=== PATIENT | female | born 1970 | race African-American/Black ===

== ENCOUNTER 2017-12-21 12:17 | Emergency (ER) | payer MEDICAID, OTHER ==
[2017-12-21] MEDS ORDERED: Ketorolac Tromethamine 30 MG/ML VIAL ONE (14:27)
[2017-12-21 14:43] LABS: #Basophils 0.1 thou/uL (0.0-0.2); #Eosinphils 0.2 thou/uL (0.0-0.7); #Lymphocytes 1.9 thou/uL (1.20-3.40); #Monocytes 0.7 thou/uL (0.11-0.59); #Neutrophils 4.8 thou/uL (1.40-6.50); %Basophils 0.7 % (0.0-1.0); %Lymphocytes 24.9 % (21.0-51.0); %Neutrophils 62.5 % (42.0-75.0); Hemoglobin 13.1 g/dL (12.0-16.0); Mean Corpuscular HGB CONC 32.1 g/dL (32.0-36.0); Mean Corpuscular Hemoglobin 29.1 pg (27.0-31.0); Mean Corpuscular Volume 90.9 fl (81.0-99.0); Mean Platelet Volume 6.8 fL (7.4-10.4); Platelet Count 368 thou/uL (130-400); RBC Distribution Width 13.7 % (11.5-14.5); Red Blood Cell (RBC) Count 4.49 mill/uL (4.20-5.40); White Blood Cell (WBC) Count 7.7 thou/uL (4.8-10.8)
[2017-12-21] MEDS ORDERED: Methocarbamol 1 GM/10 ML VIAL SLOW IVP SCH (14:45)
[2017-12-21 15:07] LABS: ALT (SGPT) 7 U/L (8-55); AST (SGOT) 11 U/L (5-34); Albumin 3.9 g/dL (3.5-5.0); Alkaline Phosphatase 105 U/L (40-150); Anion Gap 9 mmol/L (10-20); BUN (Urea Nitrogen) 11 mg/dL (7.0-18.7); Bilirubin, Total 0.4 mg/dL (0.2-1.2); Calc. Creatinine Clearance 0 mL/min (70-130); Calcium 9.4 mg/dL (7.8-10.44); Carbon Dioxide 27 mmol/L (22-29); Chloride 104 mmol/L (98-107); Estimated GFR-MDRD 69; Globulin 3.9 g/dL (2.4-3.5); Glucose 86 mg/dL (70-105); Lipase 39 U/L (8-78); Magnesium 2.1 mg/dL (1.6-2.6); Potassium 4.1 mmol/L (3.5-5.1); Protein, Total 7.8 g/dL (6.0-8.3); Sodium 136 mmol/L (136-145)
[2017-12-21 15:09] LABS: CKMB 0.4 ng/mL (0-6.6); Troponin I Less than 0.010 ng/mL (< 0.028)
[2017-12-21 15:58] LABS: Bilirubin Negative (Negative); Blood, Urine Negative (Negative); Clarity CLEAR (Clear); Glucose, Urine (Dipstick) Negative (Negative); Leukocyte Trace (Negative); Nitrite Negative (Negative); Protein, Urine (Dipstick) Negative (Neg-Trace); Specific Gravity, Urine 1.013 (1.002-1.036); pH, Urine 6.5 (5.0-9.0)
[2017-12-21 16:01] LABS: Bacteria/HPF None Seen HPF (None Seen); Hyaline Casts/LPF 0-3 HYALINE CAST LPF (0-3 Hyaline); RBC/HPF 0-3 HPF (0-3); WBC/HPF 0-3 HPF (0-3)
--- NOTE | 2017-12-21 16:21 | RAD ---
FRONTAL CHEST RADIOGRAPH: Date: 12-21-17 Comparison: 11-24-16 History: Upper back pain. Pain radiating into the arms. FINDINGS: Mild increased linear interstitial density is noted, stable. Heart and mediastinal contours are uncha nged. There is no pneumothorax or pleural fluid and no focal consolidation or alveolar edema. IMPRESSION: No acute findings. POS: H
== END 2017-12-21 16:35 | disposition home or self-care (01) ==
LOC: ERS 12:17
DX: N39.0 Urinary tract infection, site not specified (principal); I25.2 Old myocardial infarction; I10 Essential (primary) hypertension; E66.9 Obesity, unspecified; F17.210 Nicotine dependence, cigarettes, uncomplicated; F32.9 Major depressive disorder, single episode, unspecified
CPT/HCPCS: 36415; 71045; 80053; 81003; 81015; 82553; 83690; 83735; 83880; 84484; 85025; 85652; 86140; 87040; 87086; 93005; 96361; 96374; 96375; J1885; J2800

== ENCOUNTER 2018-01-16 15:24 | Emergency (ER) | payer OTHER ==
[2018-01-16] MEDS ORDERED: Ketorolac Tromethamine 30 MG/ML VIAL ONE (16:14)
== END 2018-01-16 16:40 | disposition home or self-care (01) ==
LOC: ERS 15:24
DX: S46.911A Strain of unspecified muscle, fascia and tendon at shoulder and upper arm level, right arm, initial encounter (principal); S56.911A Strain of unspecified muscles, fascia and tendons at forearm level, right arm, initial encounter; E11.9 Type 2 diabetes mellitus without complications; I10 Essential (primary) hypertension; I25.2 Old myocardial infarction; E66.9 Obesity, unspecified; F32.9 Major depressive disorder, single episode, unspecified; F17.210 Nicotine dependence, cigarettes, uncomplicated; Z79.84 Long term (current) use of oral hypoglycemic drugs; Z79.899 Other long term (current) drug therapy; X58.XXXA Exposure to other specified factors, initial encounter
CPT/HCPCS: 96372; J1885

== ENCOUNTER 2018-03-08 20:48 | Emergency (ER) | payer OTHER ==
[2018-03-08] MEDS ORDERED: Diazepam 5 MG TAB ONE (21:45)
[2018-03-08] MEDS ORDERED: Ketorolac Tromethamine 30 MG/ML VIAL ONE (21:45)
[2018-03-08 21:50] LABS: Bilirubin Negative (Negative); Blood, Urine Negative (Negative); Clarity CLOUDY (Clear); Glucose, Urine (Dipstick) Negative (Negative); Leukocyte Negative (Negative); Nitrite Negative (Negative); Protein, Urine (Dipstick) Negative (Neg-Trace); Specific Gravity, Urine 1.008 (1.002-1.036); pH, Urine 6.5 (5.0-9.0)
[2018-03-08 21:51] LABS: Pregnancy Test - Urine (BHCG) Negative (Negative); Pregu Control Background? CLEAR/WHITE (CLR/WHITE); Pregu Control Bar Appear? YES (CONTROL BAR); Specific Gravity 1.008 (1.002-1.036)
== END 2018-03-08 23:08 | disposition home or self-care (01) ==
LOC: ERS 20:48
DX: G89.29 Other chronic pain (principal); M54.5 Low back pain; E11.9 Type 2 diabetes mellitus without complications; I10 Essential (primary) hypertension; I25.2 Old myocardial infarction; F17.210 Nicotine dependence, cigarettes, uncomplicated; Z79.84 Long term (current) use of oral hypoglycemic drugs; Z79.899 Other long term (current) drug therapy
CPT/HCPCS: 81003; 81025; 96372; 99406; J1885

== ENCOUNTER 2018-04-04 14:21 | Outpatient (CLI) | payer OTHER ==
--- NOTE | 2018-04-04 15:40 | ULT ---
LEFT UPPER EXTREMITY VENOUS ULTRASOUND: COMPARISON: None. HISTORY: Left arm mass and edema. TECHNIQUE: Multiplanar, issa scale, and color Doppler images were obtained in a left upper extremity venous ultr asound. Spectral analysis of the Doppler waveforms was performed. FINDINGS: The left internal jugular vein demonstrates normal compression and flow without evidence of thrombus. The left subclavian vein demonstrates normal flow and augmentation without evidence of thrombus. T he left axial and brachial veins demonstrate normal compression, flow, and augmentation without evide nce of thrombus. The basilic and cephalic veins are patent without evidence of thrombus. The venous structures distal to the elbow are patent without evidence of thrombus. In the antecubital fossa, at the area of abnormality, there is soft tissue prominence that has the sa me echogenicity as fat. This is not definitely encapsulated but could represent a lipoma. IMPRESSION: 1. No evidence of left upper extremity deep vein thrombosis. 2. Possible lipoma in the antecubital fossa. POS: [facility]
== END 2018-04-04 14:22 | disposition home or self-care (01) ==
LOC: ULT 14:21
PROVIDERS: ATTEND Family Medicine
DX: M79.89 Other specified soft tissue disorders (principal)

== ENCOUNTER 2018-07-07 15:24 | Emergency (ER) | payer OTHER ==
[2018-07-07 16:17] LABS: #Eosinphils 0.4 thou/uL (0.0-0.7); #Lymphocytes 2.4 thou/uL (1.20-3.40); #Monocytes 0.6 thou/uL (0.11-0.59); %Basophils 0.1 % (0.0-1.0); %Eosinophils 3.6 % (0.0-10.0); %Lymphocytes 21.4 % (21.0-51.0); %Monocytes 4.9 % (0.0-10.0); Hemoglobin 12.7 g/dL (12.0-16.0); Mean Corpuscular HGB CONC 33.9 g/dL (32.0-36.0); Mean Corpuscular Hemoglobin 30.5 pg (27.0-31.0); Mean Corpuscular Volume 89.7 fL (78.0-98.0); Mean Platelet Volume 6.8 fL (7.4-10.4); Platelet Count 371 thou/uL (130-400); RBC Distribution Width 13.6 % (11.5-14.5); Red Blood Cell (RBC) Count 4.18 mill/uL (4.20-5.40); White Blood Cell (WBC) Count 11.4 thou/uL (4.8-10.8)
--- NOTE | 2018-07-07 16:31 | RAD ---
PORTABLE CHEST: 07/07/18 HISTORY: Dyspnea. COMPARISON: 12/21/17 study. Heart size is enlarged. No signs of overt pulmonary edema or focal infiltrates. IMPRESSION: Cardiomegaly. Stable chest. POS: [facility]
[2018-07-07 16:38] LABS: ALT (SGPT) Less than 7 U/L (8-55); AST (SGOT) 12 U/L (5-34); Albumin 3.7 g/dL (3.5-5.0); Alkaline Phosphatase 104 U/L (40-150); Anion Gap 13 mmol/L (10-20); BUN (Urea Nitrogen) 15 mg/dL (7.0-18.7); Bilirubin, Total 0.2 mg/dL (0.2-1.2); Calc. Creatinine Clearance 0 mL/min (70-130); Calcium 9.1 mg/dL (7.8-10.44); Carbon Dioxide 25 mmol/L (22-29); Chloride 106 mmol/L (98-107); Estimated GFR-MDRD 75; Globulin 3.8 g/dL (2.4-3.5); Glucose 108 mg/dL (70-105); Potassium 4.2 mmol/L (3.5-5.1); Protein, Total 7.5 g/dL (6.0-8.3); Sodium 140 mmol/L (136-145)
[2018-07-07 17:39] LABS: CKMB 0.9 ng/mL (0-6.6); Troponin I Less than 0.010 ng/mL (< 0.028)
[2018-07-07] MEDS ORDERED: Furosemide 40 MG/4 ML VIAL ONE (18:03)
--- NOTE | 2018-07-08 08:01 | ULT ---
VENOUS DOPPLER ULTRASOUND OF THE BILATERAL LOWER EXTREMITIES: Date: 07/07/18 HISTORY: 47-year-old female with bilateral lower extremity edema and leg pain. TECHNIQUE: Sanchez scale ultrasound with color flow and spectral Doppler imaging of the deep venous systems of the lower extremities was performed bilaterally. FINDINGS: There is good flow, compression, and augmentation noted in the common femoral, femoral, deep femoral, popliteal, posterior tibial, and greater saphenous veins on either side. IMPRESSION: No evidence of deep venous thrombosis in either lower extremity. POS: NU
== END 2018-07-07 19:52 | disposition home or self-care (01) ==
LOC: ERS 15:24
DX: I11.0 Hypertensive heart disease with heart failure (principal); I50.9 Heart failure, unspecified; M79.662 Pain in left lower leg; M79.661 Pain in right lower leg; E11.9 Type 2 diabetes mellitus without complications; I25.2 Old myocardial infarction; E66.9 Obesity, unspecified; F32.9 Major depressive disorder, single episode, unspecified; F17.210 Nicotine dependence, cigarettes, uncomplicated; Z79.899 Other long term (current) drug therapy; Z79.84 Long term (current) use of oral hypoglycemic drugs
CPT/HCPCS: 71045; 80053; 82550; 82553; 83880; 84484; 85025; 93005; 93970; 94760; 96374; J1940; J7620

== ENCOUNTER 2018-11-14 19:30 | Outpatient (CLI) | payer OTHER | END 2018-11-14 19:31 | disposition home or self-care (01) | LOC: SLEEPLAB 19:30 | PROVIDERS: ATTEND Family Medicine | DX: G47.33 Obstructive sleep apnea (adult) (pediatric) (principal); I49.9 Cardiac arrhythmia, unspecified; E66.9 Obesity, unspecified; Z68.43 Body mass index [BMI] 50.0-59.9, adult | CPT/HCPCS: 95810 ==

== ENCOUNTER 2019-02-28 20:30 | Outpatient (CLI) | payer OTHER | END 2019-02-28 20:31 | disposition home or self-care (01) | LOC: SLEEPLAB 20:30 | PROVIDERS: ATTEND Family Medicine | DX: G47.33 Obstructive sleep apnea (adult) (pediatric) (principal); E66.9 Obesity, unspecified | CPT/HCPCS: 95811 ==

== ENCOUNTER 2019-04-20 12:26 | Outpatient (CLI) | payer OTHER | END 2019-04-20 12:27 | disposition home or self-care (01) | LOC: ULT 12:26 | PROVIDERS: ATTEND Family Medicine | DX: Z01.810 Encounter for preprocedural cardiovascular examination (principal); G47.33 Obstructive sleep apnea (adult) (pediatric); J45.909 Unspecified asthma, uncomplicated; I08.1 Rheumatic disorders of both mitral and tricuspid valves | CPT/HCPCS: 93306 ==

== ENCOUNTER 2019-05-30 12:31 | Outpatient (CLI) | payer OTHER ==
--- NOTE | 2019-06-19 16:50 | MMO ---
Bilateral MAMMO Bilat Screen DDI. CLINICAL HISTORY: Patient is 48 years old and is seen for screening. The patient has no family history of breast cancer. The patient has no personal history of cancer. VIEWS: The views performed were: bilateral craniocaudal and bilateral mediolateral oblique. FILMS COMPARED: The present examination has been compared to prior imaging studies performed at [facility] on 09/16/2012, and at [facility] on 06/14/2015. This study has been interpreted with the assistance of computer-aided detection. MAMMOGRAM FINDINGS: The breasts are heterogeneously dense, which could obscure a lesion on mammography. There is a new mass seen in the sub-areolar region of the right breast. In the left breast, there are no suspicious masses, calcifications or areas of architectural distortion. IMPRESSION: NEW MASS IN THE RIGHT BREAST REQUIRES ADDITIONAL EVALUATION. AN ULTRASOUND EXAM IS RECOMMENDED. ADDITIONAL IMAGING. ACR BI-RADS Category 0 - Incomplete: Need additional imaging evaluation. [facility] will notify the patient of the need for additional imaging services. MAMMOGRAPHY NOTE: 1. A negative mammogram report should not delay a biopsy if a dominant of clinically suspicious mass is present. 2. Approximately 10% to 15% of breast cancers are not detected by mammography. 3. Adenosis and dense breasts may obscure an underlying neoplasm. Reported by: REHAN KAPADIA MD Electonically Signed: [id number]
== END 2019-05-30 12:32 | disposition home or self-care (01) ==
LOC: BICMAMMO 12:31
PROVIDERS: ATTEND Specialist
DX: Z12.31 Encounter for screening mammogram for malignant neoplasm of breast (principal); N63.41 Unspecified lump in right breast, subareolar
CPT/HCPCS: 77067

== ENCOUNTER 2019-06-22 12:09 | Outpatient (CLI) | payer OTHER ==
--- NOTE | 2019-06-22 13:30 | MMO ---
Right Breast MAMMO Unilat Diag DDI RT+KELSI. CLINICAL HISTORY: Patient is 48 years old and is seen for additional evaluation requested from prior study. The patient has no family history of breast cancer. The patient has no personal history of cancer. VIEWS: The views performed were: right craniocaudal spot compression with tomosynthesis; right mediolateral oblique spot compression with tomosynthesis; and right mediolateral with tomosynthesis. FILMS COMPARED: The present examination has been compared to prior imaging studies performed at [facility] on 09/16/2012, 05/30/2019 and 06/22/2019, and at [facility] on 06/14/2015. MAMMOGRAM FINDINGS: The breast is heterogeneously dense, which could obscure a lesion on mammography. Additional evaluation was performed for the mass in the right breast, sub-areolar seen on 05/30/2019. On the present examination, there is a mass in the sub-areolar region of the right breast. Mass like opacity corresponds to mild ductal ectasia on ultrasound. There are no suspicious masses, suspicious calcifications, or new areas of architectural distortion. IMPRESSION: THERE IS NO MAMMOGRAPHIC EVIDENCE OF MALIGNANCY. THE FINDINGS AND RECOMMENDATIONS WERE DISCUSSED WITH THE PATIENT PRIOR TO HER LEAVING THE CENTER. A ROUTINE FOLLOW-UP MAMMOGRAM IN 1 YEAR IS RECOMMENDED. THE RESULTS OF THIS EXAM WERE SENT TO THE PATIENT. ACR BI-RADS Category 2 - Benign finding MAMMOGRAPHY NOTE: 1. A negative mammogram report should not delay a biopsy if a dominant of clinically suspicious mass is present. 2. Approximately 10% to 15% of breast cancers are not detected by mammography. 3. Adenosis and dense breasts may obscure an underlying neoplasm. Reported by: REHAN KAPADIA MD Electonically Signed: [id number]
--- NOTE | 2019-06-23 03:41 | ULT ---
RIGHT BREAST ULTRASOUND: INDICATION: Density within the right breast retroareolar region. FINDINGS: The retroareolar right breast mass-like density corresponds to mildly ectatic ducts. No intraluminal mass is seen within the dilated ducts. IMPRESSION: BIRADS category 2 - benign. Recommend routine annual mammographic screening. Please see the miko adams dictated right breast diagnostic mammogram for further details. POS: OFF
== END 2019-06-22 12:10 | disposition home or self-care (01) ==
LOC: BICMAMMO 12:09
PROVIDERS: ATTEND Specialist
DX: N63.10 Unspecified lump in the right breast, unspecified quadrant (principal)
CPT/HCPCS: G0279

== ENCOUNTER 2019-08-15 15:36 | Outpatient (CLI) | payer OTHER ==
--- NOTE | 2019-08-15 16:07 | RAD ---
TWO VIEW CHEST: 08/15/19 INDICATIONS: Dyspnea. FINDINGS: The cardiac silhouette is enlarged and there is prominence of the pulmonary vasculature as well as th e bilateral pulmonary interstitium. No significant effusion or discrete pneumothorax. IMPRESSION: Findings of fluid overload. Correlate clinically. Imaging follow-up may also be obtained for continue d assessment. POS: [facility]
== END 2019-08-15 15:37 | disposition home or self-care (01) ==
LOC: RAD 15:36
PROVIDERS: ATTEND Internal Medicine
DX: R06.00 Dyspnea, unspecified (principal); E87.70 Fluid overload, unspecified
CPT/HCPCS: 71046

== ENCOUNTER 2019-10-03 17:23 | Emergency (ER) | payer OTHER ==
[2019-10-03] MEDS ORDERED: Ketorolac Tromethamine 30 MG/ML VIAL ONE (19:00)
--- NOTE | 2019-10-03 19:26 | RAD ---
EXAM: 3 views of the left shoulder HISTORY: Shoulder pain COMPARISON: None FINDINGS: There is no evidence of acute fracture or dislocation. No degenerative changes are present. No soft tissue swelling is seen. The visualized thorax is unremarkable. IMPRESSION: No evidence of acute osseous abnormality.
--- NOTE | 2019-10-03 19:27 | RAD ---
EXAM: 3 views of the lumbosacral spine HISTORY: Low back pain COMPARISON: None FINDINGS: 3 views of the lumbosacral spine shows normal height and alignment of the vertebral bodies and intervertebral discs without fracture or subluxation. Mild degenerative changes are seen at the thoracolumbar junction with small osteophytes present in this location. The sacroiliac joints are unremarkable. IMPRESSION: Mild degenerative changes of the spine without acute osseous abnormality.
== END 2019-10-03 19:50 | disposition home or self-care (01) ==
LOC: ERS 17:23
DX: M54.5 Low back pain (principal); M25.512 Pain in left shoulder; E11.9 Type 2 diabetes mellitus without complications; I10 Essential (primary) hypertension; E66.9 Obesity, unspecified; F17.210 Nicotine dependence, cigarettes, uncomplicated; Z79.84 Long term (current) use of oral hypoglycemic drugs; Z79.899 Other long term (current) drug therapy
CPT/HCPCS: 72100; 96372; J1885

== ENCOUNTER 2019-11-06 22:58 | Inpatient (IN) | payer OTHER ==
[~2019-11-06 22:58] MED LIST: Iopamidol 370 76% 100 ML VIAL ONE
[2019-11-06 23:30] LABS: Hemoglobin 13.8 g/dL (12.0-16.0); Mean Corpuscular Hemoglobin 29.3 pg (27.0-31.0); Mean Corpuscular Volume 88.8 fL (78.0-98.0); Platelet Count 416 thou/uL (130-400); RBC Distribution Width 13.9 % (11.5-14.5); White Blood Cell (WBC) Count 18.8 thou/uL (4.8-10.8)
[2019-11-06] MEDS ORDERED: Ondansetron PF 4 MG/2 ML Vial ONE (23:31)
[2019-11-06] MEDS ORDERED: Morphine 4 MG/ML VIAL ONE (23:31)
[2019-11-06 23:41] LABS: ALT (SGPT) 8 U/L (8-55); AST (SGOT) 11 U/L (5-34); Albumin 4.1 g/dL (3.5-5.0); Alkaline Phosphatase 108 U/L (40-110); Anion Gap 14 mmol/L (10-20); BUN (Urea Nitrogen) 13 mg/dL (7.0-18.7); Bilirubin, Total 0.4 mg/dL (0.2-1.2); Calc. Creatinine Clearance 0 mL/min (70-130); Calcium 9.3 mg/dL (7.8-10.44); Carbon Dioxide 26 mmol/L (22-29); Chloride 104 mmol/L (98-107); Estimated GFR-MDRD 74; Globulin 3.9 g/dL (2.4-3.5); Glucose 116 mg/dL (70-105); Potassium 4.1 mmol/L (3.5-5.1); Sodium 140 mmol/L (136-145)
[2019-11-06 23:45] LABS: Band 2 % (5-11); Eosinophils 4 % (0-10); Lymphocytes 20 % (21-51); MDiff Complete? YES; Monocytes 3 % (0-10); Neutrophil 71 % (42-75)
--- NOTE | 2019-11-06 23:56 | CT ---
CT abdomen and pelvis: 11/06/2019 COMPARISON: None HISTORY: Nausea vomiting and pain TECHNIQUE: Axial CT imaging at 5 mm intervals from the lung bases through the pubic symphysis with IV contrast. Coronal and sagittal reformatted imaging obtained. FINDINGS: Imaged lung bases are unremarkable. No free intraperitoneal air. The liver, gallbladder, sp shaun, pancreas, adrenal glands, and kidneys demonstrate no acute findings. Small volume free fluid noted in the pelvic cul-de-sac and in the left lower quadrant. There are nons pecific areas of hypodensity within the lower uterine segment and uterine body which could represent fibroid disease or fluid within the endometrial canal. This could be better assessed with f ollow-up pelvic ultrasound. There are a few scattered colonic diverticula. No evidence for diverticulitis or appendicitis. There is fluid within the stomach. There is a loop of small bowel which contains fecal material within the mid left abdomen. This small bowel loop is best seen on axial image 60 and coronal image 77. There is mild small bowel dilatation in this region and small volume fluid within the mesentery. Distal small bowel loops are d ecompressed. Findings may signify developing small bowel obstruction or focal ileus. The vascular structures of the abdomen/pelvis appear patent. No abdominal or pelvic lymphadenopathy i s seen. Review of the osseous structures demonstrates no worrisome lytic or blastic bone lesions. IMPRESSION: Small volume free fluid in the left lower quadrant, pelvic cul-de-sac, and mesentery with in the left lower quadrant. In this region there is a mildly dilated small bowel loop containing fecal material within distal small bowel dilatation suggesting developing small bowel obstruction or focal ileus. Short-term follow-up imaging following treatment to document resolution advised. No evidence for free intraperitoneal air or appendicitis. Additional incidental findings as detailed abo ve.
[2019-11-07 00:46] LABS: BHCG - Serum Negative (NEGATIVE); Pregs Control Background? CLEAR/WHITE (CLR/WHITE); Pregs Control Bar Appear? YES (CONTROL BAR)
[2019-11-07] MEDS ORDERED: Benzocaine 20% Spray 60 ML CAN ONE (01:12)
[2019-11-07] MEDS ORDERED: Morphine 2 MG/ML SYRINGE SLOW IVP PRN (02:36)
[2019-11-07] MEDS ORDERED: Acetaminophen 325 MG TAB PO PRN (02:37)
[2019-11-07] MEDS ORDERED: Ondansetron ODT 4 MG TAB SL PRN (02:37)
[2019-11-07] MEDS ORDERED: Ondansetron PF 4 MG/2 ML Vial IVP PRN (02:37)
[2019-11-07] MEDS: Sodium Chloride 0.9% 1,000 ML IV SCH ×2 (03:07→15:52)
[2019-11-07 03:14] VITALS: BMI 51.0
[2019-11-07] MEDS ORDERED: Sodium Chloride 0.9% 10 ML ONE (04:18)
--- NOTE | 2019-11-07 08:14 | RAD ---
RADIOGRAPH CHEST 1 VIEW: Date: 11/07/19 Time: 0134 hours HISTORY: 49-year-old female with chest and epigastric pain. Nausea and vomiting. FINDINGS: There is no air space density, pulmonary edema, or pneumothorax. The lateral costophrenic angles are sharp. The only interval change since 08/15/19 is a current esophagogastric tube, which passes infer ior to the diaphragm, with distal tip outside of the field of view. Lordotic angulation magnifies the cardiac shadow. IMPRESSION: 1. No acute pulmonary findings. 2. Esophagogastric tube. jn [] POS: [facility]
[2019-11-07] MEDS ORDERED: FLU VACC QS2019-20(6MOS UP)/PF 60 MCG/0.5 ML SYRINGE IM ONE (09:00)
[2019-11-07 10:02] LABS: #Basophils 0.1 thou/uL (0.0-0.2); #Eosinphils 0.3 thou/uL (0.0-0.7); #Lymphocytes 2.8 thou/uL (1.20-3.40); #Monocytes 0.6 thou/uL (0.11-0.59); #Neutrophils 9.8 thou/uL (1.40-6.50); %Basophils 0.5 % (0.0-1.0); %Eosinophils 2.5 % (0.0-10.0); %Lymphocytes 20.7 % (21.0-51.0); %Monocytes 4.4 % (0.0-10.0); %Neutrophils 71.9 % (42.0-75.0); Hemoglobin 12.9 g/dL (12.0-16.0); Mean Corpuscular Hemoglobin 29.9 pg (27.0-31.0); Mean Corpuscular Volume 90.6 fL (78.0-98.0); Mean Platelet Volume 7.3 fL (7.4-10.4); Platelet Count 369 thou/uL (130-400); Red Blood Cell (RBC) Count 4.33 mill/uL (4.20-5.40); White Blood Cell (WBC) Count 13.6 thou/uL (4.8-10.8)
[2019-11-07 10:17] LABS: Anion Gap 9 mmol/L (10-20); BUN (Urea Nitrogen) 10 mg/dL (7.0-18.7); Calc. Creatinine Clearance 166 mL/min (70-130); Calcium 8.9 mg/dL (7.8-10.44); Carbon Dioxide 29 mmol/L (22-29); Chloride 106 mmol/L (98-107); Estimated GFR-MDRD 82; Glucose 99 mg/dL (70-105); Potassium 4.2 mmol/L (3.5-5.1); Sodium 140 mmol/L (136-145)
[2019-11-07] MEDS ORDERED: MD-Gastroview 120 ML BOT ONE (11:12)
--- NOTE | 2019-11-07 11:21 | HP ---
CHIEF COMPLAINT: Abdominal pain, nausea and vomiting. HISTORY OF PRESENT ILLNESS: The patient is a 49-year-old morbidly obese black female. She has a BMI of 51.0. She presented to the emergency room late last night complaining of relatively sudden onset of abdominal pain and vomiting. She had several episodes of vomiting before presented to the hospital. In the emergency room, she underwent evaluation with radiologic and laboratory studies. Her laboratory studies revealed an elevated white blood cell count of 18.8. Hemoglobin was 13.8. Chemistries revealed normal electrolytes and unremarkable liver function tests. CT scan was felt to potentially be consistent with an early/evolving small bowel obstruction with an area of fecalization of small bowel on the left side of her lower abdomen. For that reason, I was consulted and I admitted her to my service. Nasogastric tube was placed. She has had negligible output from the nasogastric tube overnight. She currently complains of no significant pain or primary concern is that she is hungry. She notes her last bowel movement was yesterday before she presented to the hospital and was a little bit loose. She denies any history of prior episodes of this discomfort. PAST MEDICAL HISTORY: 1. Hypertension. 2. Hyperlipidemia. 3. Arthritis. 4. Diabetes mellitus. 5. Morbid obesity. PAST SURGICAL HISTORY: x2. MEDICATIONS: 1. Amlodipine. 2. Atorvastatin. 3. Meloxicam. 4. Furosemide. 5. Metformin. ALLERGIES: NO KNOWN DRUG ALLERGIES. PERSONAL AND SOCIAL HISTORY: She tells me she is still smoking, but relatively lightly because of stress. She denies alcohol. REVIEW OF SYSTEMS: Otherwise, unremarkable. FAMILY HISTORY: Noncontributory. PHYSICAL EXAMINATION: VITAL SIGNS: Temperature is 98.4, pulse 74, and blood pressure 178/100. GENERAL: She is a well-developed, well-nourished, pleasant, alert, morbidly obese, black female, resting in bed, in no acute distress. She is alert and oriented x3. HEAD, EYES, EARS, NOSE, AND THROAT: Unremarkable. NECK: Supple. LUNGS: Clear to auscultation. CARDIAC: Regular rate and rhythm without murmur. ABDOMEN: Morbidly obese. It is soft throughout. Bowel sounds are present and hypoactive to normoactive. There is no focal area of tenderness in any quadrant in her abdomen. There is no guarding at all. EXTREMITIES: Unremarkable. LABORATORY DATA: Repeat CBC was obtained this morning revealing white blood cell count has dropped down to 13.6, hemoglobin is essentially stable at 12.9. Differential is unremarkable. ASSESSMENT AND PLAN: The patient with potentially concerning findings on CT scan last night. Her current examination does not support any acute intraabdominal process. I suspect that she may have had an adhesive episode associated with small bowel adjacent to her uterus. This may have resolved spontaneously. I would like to make sure that this all functions appropriately before I clear her to resume her diet. Therefore, we will obtain a Gastrografin small bowel follow-through study today. If this contrast goes through, we would anticipate removing her nasogastric tube and starting a diet. Job ID: [id number]
--- NOTE | 2019-11-07 15:32 | RAD ---
SMALL BOWEL SERIES: 11/07/19 HISTORY: Small bowel obstruction. FINDINGS: A small bowel series is performed following the administration of contrast through nasogastric tube. Serial imaging demonstrates normal passage of contrast from loops of small bowel into the colon by on e hour. IMPRESSION: No evidence of small bowel obstruction. POS: NU
[2019-11-08 07:38] VITALS: BP 140/84; TEMP 98.4
--- NOTE | 2019-11-08 14:07 | DIS ---
DATE OF ADMISSION: 11/07/2019 DATE OF DISCHARGE: 11/08/2019 ADMISSION DIAGNOSIS: Possible early small bowel obstruction. DISCHARGE DIAGNOSIS: Possible early small bowel obstruction, resolved. OPERATION/PROCEDURES PERFORMED: None. HISTORY OF PRESENT ILLNESS: The patient is a 49-year-old morbidly obese black female, who presented to the hospital complaining of abdominal pain with nausea and vomiting. CT scan had demonstrated a relatively short segment of dilated small intestine with fecalization of the small intestine. This appeared to be adjacent to her uterus. Her only prior abdominal surgery had been C-sections. Nasogastric tube was placed, but she never had any significant NG output. HOSPITAL COURSE: She was admitted to my service. As mentioned, nasogastric tube was left to suction. Her abdomen was entirely benign to examination. I ordered a Gastrografin small bowel follow-through on the morning after she was admitted. This went through quickly and was an unremarkable exam. Nasogastric tube was removed and she was started on a full liquid diet. She tolerated that overnight and still feels well this morning. She is discharged home at this time. She is instructed to resume her home medications and she is given no new medications. Since I did not operate on her, she does not need to follow up with me. In regard to this area of abnormality, it is possible that she does have some adhesive disease that caused this issue and certainly has the potential to recur. If she has another episode of obstruction with pain or vomiting, then I would certainly recommend laparoscopy to evaluate this. I discussed this with her. She will contact me if she does have further issues. Job ID: [id number]
== END 2019-11-08 11:07 | disposition home or self-care (01) | DRG 389 ==
LOC: ERS 22:58 → 3SE 11-07 02:01
PROVIDERS: ADMIT Specialist; ATTEND Specialist
DX: K56.50 Intestinal adhesions [bands], unspecified as to partial versus complete obstruction (principal); Z68.43 Body mass index [BMI] 50.0-59.9, adult; E66.01 Morbid (severe) obesity due to excess calories; I10 Essential (primary) hypertension; E78.5 Hyperlipidemia, unspecified; M19.91 Primary osteoarthritis, unspecified site; Z79.899 Other long term (current) drug therapy; E11.9 Type 2 diabetes mellitus without complications; I25.2 Old myocardial infarction
CPT/HCPCS: 36415; 71045; 74177; 74250; 80048; 80053; 83605; 83690; 84484; 84703; 85025; 93005; 94640; J2270; J2405; J7620; Q9963; Q9967

== ENCOUNTER 2019-12-09 18:39 | Observation (INO) | payer OTHER ==
[2019-12-09 19:35] LABS: #Basophils 0.1 thou/uL (0.0-0.2); #Eosinphils 0.3 thou/uL (0.0-0.7); #Monocytes 0.6 thou/uL (0.11-0.59); #Neutrophils 5.2 thou/uL (1.40-6.50); %Basophils 0.9 % (0.0-1.0); %Eosinophils 2.5 % (0.0-10.0); %Lymphocytes 39.2 % (21.0-51.0); %Monocytes 6.2 % (0.0-10.0); %Neutrophils 51.2 % (42.0-75.0); Hemoglobin 13.3 g/dL (12.0-16.0); Mean Corpuscular HGB CONC 32.1 g/dL (32.0-36.0); Mean Corpuscular Hemoglobin 28.6 pg (27.0-31.0); Mean Corpuscular Volume 89.2 fL (78.0-98.0); Platelet Count 310 thou/uL (130-400); RBC Distribution Width 13.9 % (11.5-14.5); Red Blood Cell (RBC) Count 4.63 mill/uL (4.20-5.40); White Blood Cell (WBC) Count 10.1 thou/uL (4.8-10.8)
[2019-12-09] MEDS ORDERED: Sodium Chloride 0.9% 100 ML ONE (19:44)
[2019-12-09] MEDS ORDERED: predniSONE 20 MG TAB ONE (19:44)
[2019-12-09] MEDS ORDERED: Cefepime 2 GM VIAL ONE (19:44)
[2019-12-09] MEDS ORDERED: Acetaminophen 325 MG TAB ONE (19:44)
[2019-12-09 19:49] LABS: ALT (SGPT) 10 U/L (8-55); AST (SGOT) 18 U/L (5-34); Albumin 3.9 g/dL (3.5-5.0); Alkaline Phosphatase 108 U/L (40-110); Anion Gap 13 mmol/L (10-20); BUN (Urea Nitrogen) 10 mg/dL (7.0-18.7); Bilirubin, Total 0.2 mg/dL (0.2-1.2); Calc. Creatinine Clearance 0 mL/min (70-130); Carbon Dioxide 26 mmol/L (22-29); Chloride 105 mmol/L (98-107); Estimated GFR-MDRD 58; Globulin 3.8 g/dL (2.4-3.5); Glucose 133 mg/dL (70-105); Potassium 3.7 mmol/L (3.5-5.1); Protein, Total 7.7 g/dL (6.0-8.3); Sodium 140 mmol/L (136-145)
--- NOTE | 2019-12-09 20:16 | RAD ---
EXAM: Chest Two Views 12/09/2019 8:13 PM HISTORY: Cough, congestion and fever COMPARISON: June 07, 2000 FINDINGS: Heart: Stable mild cardiomegaly Pulmonary vessels: Normal. Costophrenic angles: Clear. Lungs: No acute airspace consolidation. Pneumothorax: None. Osseous structures:Intact. Additional findings: None. IMPRESSION: No significant acute intrathoracic disease.
[2019-12-09] MEDS ORDERED: Azithromycin 500 MG VIAL ONE (20:49)
--- NOTE | 2019-12-09 22:03 | PDOC.FPRHP ---
- History of Present Illness Chief Complaint: Cough, Congestion History of Present Illness: Pt is a 49 yo F with history of HTN, HLD, Arthritis, DM, Obesity, and Asthma who presents for 1 week of cough and SOB. Reports started as coughing and SOB a week ago. States then a few days ago started getting some sinus headaches. Pt reports taking tylenol which didn't help. Pt reports has not gotten any better. Pt reports wed and had a few episodes of vomiting. Pt reports been having trouble eating as she has lost her taste buds. Pt has albuterol pump and nebulizer machine. Pt reports using them both 3x a day. Denies getting any relief. Reports having fever . States was 102. ED Course: Cxray was read as normal, but ED doc said he thought RLL PNA was developing. Flu was negative. First trop was 0.025. - Allergies/Adverse Reactions Allergies Allergy/AdvReac Type Severity Reaction Status Date / Time No Known Drug Allergies Allergy Verified 12/10/19 02:26 - Home Medications Medication Instructions Recorded Confirmed Type Albuterol Sulfate [Albuterol 2 inh INH PRN PRN 04/18/14 12/09/19 History Sulfate HFA] Furosemide [Lasix] 1 tab PO DAILY 06/07/15 12/09/19 History Amlodipine [Norvasc] 5 mg PO DAILY 11/07/19 12/09/19 History Meloxicam 15 mg PO DAILY 11/07/19 12/09/19 History Atorvastatin Calcium 40 mg PO DAILY 12/09/19 12/09/19 History Comments: The above med list is not fully correct. the list below was reviewed from her clinic charts. Altamist spray. 1 spray each nare 2x daily Meloxicam 1 tab by mouth 1x daily 5-MTHF 1 mg oral tab 1x daily Albuterol nebs q4hrs as needed Proair HF 108 1-2 puffs inhaled q 4-6 hrs prn Atorvastatin 40 mg tab 1x daily Amlodipine 10 mg daily - History PMHx: HTN, Asthma, Glucose Intolerance, Sleep Apnea, HLD, Sacroidosis PSHx: x2 FHx: Mom- HTN, Passed from cancer at age 83 HTN runs in family Social: Pt reports been smoking since 2017, pt smokes 2 ppd. Had a 5 year period she did not smoke. Smoked ten years prior to that. Reports occasional drinking. denies any illicit drug use. - Review of Systems General: reports: fever/chills, fatigue. denies: weight/appetite/sleep changes , night sweats ENT: reports: nasal congestion, rhinorrhea Respiratory: reports: cough, congestion (drainage into the back of her throat.) , shortness of breath Cardiovascular: denies: chest pain, palpitation, orthopnea Gastrointestinal: reports: vomiting (reports throwing up wednesday and . ). denies: nausea, diarrhea, constipation, abdominal pain Skin: denies: rashes, lesions, jaundice, itching Musculoskeletal: reports: other (pain in ribs from coughing). denies: pain, tenderness, stiffness, swelling, arthritis/arthralgias Neurological: denies: numbness, syncope, seizure Psychological: denies: anxiety, depression - Vital signs BP: 172/105 HR: 81 RR: 20 Tmax: 100.2 Pox: 98% on RA Wt: 111.13 kg - Physical Exam Constitutional: NAD, awake, alert and oriented HEENT: normocephalic and atraumatic, PERRLA, EOMI, conjunctiva clear -HEENT: erythema in posterior pharynx Neck: trachea midline, no LAD Heart: RRR, normal S1/S2, no murmurs/rubs/gallops -Lungs: Slight wheeze in RLL. CTA on L and RUL Abdomen: soft, non-tender, bowel sounds present Musculoskeletal: normal structure, normal tone Neurological: CN II-XII intact -Skin: Dermatitis on upper eyelids and on neck. Thickening of skin on LE from sarcoid. Heme/Lymphatic: no unusual bruising or bleeding Psychiatric: normal mood and affect FMR H&P: Results - Labs Result Diagrams: 12/10/19 04:06 12/10/19 04:06 Lab results: WBC 10.1 thou/uL (4.8-10.8) 12/09/19 19:25 Hgb 13.3 g/dL (12.0-16.0) 12/09/19 19:25 Hct 41.3 % (36.0-47.0) 12/09/19 19:25 MCV 89.2 fL (78.0-98.0) 12/09/19 19:25 Plt Count 310 thou/uL (130-400) 12/09/19 19:25 Neutrophils % 51.2 % (42.0-75.0) 12/09/19 19:25 Sodium 140 mmol/L (136-145) 12/09/19 19:25 Potassium 3.7 mmol/L (3.5-5.1) 12/09/19 19:25 Chloride 105 mmol/L (98-107) 12/09/19 19:25 Carbon Dioxide 26 mmol/L (22-29) 12/09/19 19:25 BUN 10 mg/dL (7.0-18.7) 12/09/19 19:25 Creatinine 1.20 mg/dL (0.6-1.1) H 12/09/19 19:25 Glucose 133 mg/dL (70-105) H 12/09/19 19:25 Lactic Acid 1.1 mmol/L (0.5-2.2) 12/09/19 19:25 Calcium 9.0 mg/dL (7.8-10.44) 12/09/19 19:25 Total Bilirubin 0.2 mg/dL (0.2-1.2) 12/09/19 19:25 AST 18 U/L (5-34) 12/09/19 19:25 ALT 10 U/L (8-55) 12/09/19 19:25 Alkaline Phosphatase 108 U/L (40-110) 12/09/19 19:25 Serum Total Protein 7.7 g/dL (6.0-8.3) 12/09/19 19:25 Albumin 3.9 g/dL (3.5-5.0) 12/09/19 19:25 FMR H&P: A/P - Problem List (1) Bronchitis Current Visit: Yes Status: Acute Code(s): J40 - BRONCHITIS, NOT SPECIFIED ACUTE OR CHRONIC (2) Asthma Current Visit: Yes Status: Acute Code(s): J45.909 - UNSPECIFIED ASTHMA, UNCOMPLICATED Qualifiers: Asthma complication type: with acute exacerbation (3) Diabetes Current Visit: Yes Status: Acute Code(s): E11.9 - TYPE 2 DIABETES MELLITUS WITHOUT COMPLICATIONS (4) Hypertension Current Visit: No Status: Acute Code(s): I10 - ESSENTIAL (PRIMARY) HYPERTENSION (5) Tobacco abuse Current Visit: Yes Status: Acute Code(s): Z72.0 - TOBACCO USE (6) Hypertensive urgency Current Visit: Yes Status: Acute Code(s): I16.0 - HYPERTENSIVE URGENCY (7) KARYN (acute kidney injury) Current Visit: Yes Status: Acute Code(s): N17.9 - ACUTE KIDNEY FAILURE, UNSPECIFIED - Plan Pt is a 49 yo F with history of HTN, HLD, Arthritis, DM, Obesity, and Asthma who presents for 1 week of cough and SOB. 1. Bronchitis CXR: Neg -1 week of cough and SOB -Given Cefepime & Azithro in ED -Will give Amoxcillin & Azithro -Prednisone 40 mg for 5 days -Duonebs ordered -Started Flonase, Zyrtec, Tessalon, and Robitussin for cough 2. Asthma Exacerbation -Increased Albuterol use at home 3x/d as compared to 1x/d -Started Dulera 3. HTN with HTN Urgency SBP: 220 initial in ED -Take Amlodipine 10 mg and Lasix at home, continue at this time. -Will monitor and add on prn -Consider starting HCTZ 4. DMII -On Metformin, will restart 5. Tobacco Abuse -2PPD for 2 years, stopped for 5 years until 2017, smoked for 10 years prior -Ordered Nicotine patch and counseling on cessation 6. KARYN Cre: 1.2, baseline: 0.8 -Will monitor -Recommend PO fluids Lines: Peripheral, SL Diet: HHLSo, CC @ 1999 Activity: Ad Carina DVT PPx: SCD GI PPx: Pepcid PCP: Beronica Dispo: Med obs, LOS < 48H. FMR H&P: Upper Level - Pertinent history I was present with the risk management internship during the HPI. I scribed the above document. I made edits as needed. I agree with above. - Pertinent findings Pt has dry cough when in the room. Some audible expiratory wheezes can be noted. Resp: No rales or crackles. Some mild wheeze noted. More upper airway wheeze sounds noted. Cardio: RRR, no murmurs or gallops - Plan Date/Time: 12/09/192200 I, Tray Colon MD, have evaluated this patient and agree with findings/plan as outlined by risk management internship resident. Pertinent changes/additions are listed here. At this time pt is being admitted for asthma exacerbation. will continue with adan duonebs. Will give prednisone burst. Switched pt to Dulera inhaler to try and get better control. Px flonase and zyrtec to help with sinus sx's. Px tessalon and robitussin for cough relief. Pt also noted to have HTN urgency. Unsure if taking home meds. Restarted home meds. PRN hydralazine added for severe range pressures. Will continue to monitor. Pt o2 sats stable on RA. Pt likely be here for short stay. See above for detailed plan. Addendum - Attending - Attending Attestation Date/Time: 12/10/19 1540 I personally evaluated the patient and discussed the management with Dr. Cain Schofield I agree with the History, Examination, Assessment and Plan documented above with any addition or exceptions noted below.
[2019-12-09] MEDS ORDERED: Ondansetron PF 4 MG/2 ML Vial IVP PRN (22:46)
[2019-12-09] MEDS ORDERED: Ondansetron ODT 4 MG TAB PO PRN (22:46)
[2019-12-09] MEDS ORDERED: Acetaminophen 325 MG TAB PO PRN (22:46)
[2019-12-09] MEDS ORDERED: Senokot S 8.6-50 MG TAB PO PRN (22:46)
[2019-12-09] MEDS ORDERED: Guaifenesin DM 100-10/5 ML UDCUP PO PRN (22:46)
[2019-12-09] MEDS ORDERED: predniSONE 20 MG TAB PO SCH (23:00)
[2019-12-09] MEDS ORDERED: Nicotine 21 MG PATCH TD SCH (23:00)
[2019-12-09] MEDS ORDERED: hydrALAZINE 20 MG/ML VIAL SLOW IVP PRN (23:43)
[2019-12-09 23:53] VITALS: BMI 49.7
[2019-12-10] MEDS: Benzonatate 100 MG CAP PO PRN ×2 (00:24→09:03)
[2019-12-10 04:06] VITALS: TEMP 97.9
[2019-12-10 04:58] LABS: ALT (SGPT) 9 U/L (8-55); AST (SGOT) 17 U/L (5-34); Albumin 3.9 g/dL (3.5-5.0); Alkaline Phosphatase 110 U/L (40-110); Anion Gap 11 mmol/L (10-20); BUN (Urea Nitrogen) 11 mg/dL (7.0-18.7); Bilirubin, Total 0.2 mg/dL (0.2-1.2); Calc. Creatinine Clearance 125 mL/min (70-130); Calcium 8.9 mg/dL (7.8-10.44); Carbon Dioxide 27 mmol/L (22-29); Chloride 105 mmol/L (98-107); Estimated GFR-MDRD 61; Glucose 234 mg/dL (70-105); Potassium 3.8 mmol/L (3.5-5.1); Protein, Total 7.9 g/dL (6.0-8.3); Sodium 139 mmol/L (136-145)
[2019-12-10 04:59] LABS: Band 8 % (5-11); Hemoglobin 13.6 g/dL (12.0-16.0); Lymphocytes 9 % (21-51); MDiff Complete? YES; Mean Corpuscular Hemoglobin 28.7 pg (27.0-31.0); Mean Corpuscular Volume 89.6 fL (78.0-98.0); Mean Platelet Volume 7.2 fL (7.4-10.4); Metamyelocyte 1 % (0-0); Myelocyte 1 % (0-0); Neutrophil 79 % (42-75); Platelet Count 320 thou/uL (130-400); Platelet Morphology Comment Appears Adequate; RBC Distribution Width 13.9 % (11.5-14.5); RBC Morphology Normal; Reactive Lymphocytes 2 % (0-10); Red Blood Cell (RBC) Count 4.73 mill/uL (4.20-5.40); White Blood Cell (WBC) Count 12.3 thou/uL (4.8-10.8)
--- NOTE | 2019-12-10 06:09 | PDOC.FM ---
- Subjective Subjective: Pt's main complaint this morning is her cough that is making sleeping difficult and is uncomfortable. She denies any shortness of breath currently. She got 1 breathing treatment overnight which helped. Denies any fevers or chills. - Objective Vital Signs & Weight: Vital Signs (12 hours) Temp Pulse Resp BP Pulse Ox 12/10/19 03:49 97.9 F 82 20 156/79 H 98 12/10/19 01:21 92 L 12/10/19 01:20 14 92 L 12/10/19 00:35 87 174/94 H 12/09/19 23:33 99.2 F 91 20 187/97 H 98 Weight Weight 131.451 kg Result Diagrams: 12/10/19 04:06 12/10/19 04:06 Phys Exam - Physical Examination Constitutional: NAD HEENT: moist MMs Neck: no JVD, full ROM Soft inspiratory and expiratory wheezes, mildly prolonged expiratory phase Cardiovascular: RRR, no significant murmur, no rub Gastrointestinal: soft, non-tender Musculoskeletal: no edema, pulses present Neurological: non-focal, moves all 4 limbs Psychiatric: normal affect, A&O x 3 Skin: no rash, cap refill <2 seconds Dx/Plan (1) KARYN (acute kidney injury) Code(s): N17.9 - ACUTE KIDNEY FAILURE, UNSPECIFIED Status: Acute (2) Asthma Code(s): J45.909 - UNSPECIFIED ASTHMA, UNCOMPLICATED Status: Acute Qualifiers: Asthma complication type: with acute exacerbation (3) Bronchitis Code(s): J40 - BRONCHITIS, NOT SPECIFIED ACUTE OR CHRONIC Status: Acute (4) Diabetes Code(s): E11.9 - TYPE 2 DIABETES MELLITUS WITHOUT COMPLICATIONS Status: Acute - Plan Plan: Pt is a 49 yo F with history of HTN, HLD, Arthritis, DM, Obesity, and Asthma who presents for 1 week of cough and SOB. Bronchitis -Amoxcillin & Azithro -Prednisone 40 mg for 5 days -Duonebs ordered prn -Started Flonase, Zyrtec, Tessalon, and Robitussin for cough -currently satting 98% of room air Asthma Exacerbation -Increased Albuterol use at home 3x/d as compared to 1x/d -Started Dulera, will send home with low dose ICS + formoterol HTN with HTN Urgency -currently down trending, will monitor after am amlodipine DMII -On Metformin, will restart -Expect sugars to be uncontrolled w/ steroid tx Tobacco Abuse -2PPD for 2 years, stopped for 5 years until 2017, smoked for 10 years prior -Ordered Nicotine patch and counseling on cessation KARYN Cr: 1.2 -> 1.15, baseline: 0.8 -Will monitor -Recommend PO fluids Diet: HHLSo, CC @ 1999 DVT PPx: SCD GI PPx: Pepcid Dispo: med obs, if pt continues to do well w/ normal saturations will likely be able to DC home later today PCP: Beronica Addendum - Attending - Attending Attestation Date/Time: 12/10/19 1033 I personally evaluated the patient and discussed the management with Dr. Raymundo I agree with the History, Examination, Assessment and Plan documented above with any addition or exceptions noted below. Patient appears stable for dismissal.
[2019-12-10] MEDS ORDERED: Mometasone/Formoterol 120 PUFF INHALER INH SCH (06:30)
[2019-12-10 08:11] VITALS: BP 179/89
[2019-12-10] MEDS ORDERED: Furosemide 40 MG TAB PO SCH (09:00)
[2019-12-10] MEDS ORDERED: Azithromycin 250 MG TAB PO SCH (09:00)
[2019-12-10] MEDS ORDERED: AMOXicillin 250 MG CAP PO SCH (09:00)
[2019-12-10] MEDS ORDERED: Famotidine 20 MG TAB PO SCH (09:00)
[2019-12-10] MEDS ORDERED: Amlodipine 5 MG TAB PO SCH (09:00)
[2019-12-10] MEDS ORDERED: Fluticasone Propionate Nasal Spray 16 gm Bottle NASAL SCH (09:00)
[2019-12-10] MEDS ORDERED: Atorvastatin Calcium 40 MG TAB PO SCH (09:00)
--- NOTE | 2019-12-11 05:03 | DIS ---
DATE OF ADMISSION: 12/09/2019 DATE OF DISCHARGE: 12/10/2019 ADMITTING ATTENDING: Dr. Dominic Lim. DISCHARGE ATTENDING: Dr. Dominic Lim. RESIDENT: Dr. Ezra Raymundo. CONSULTS: None. IMAGING: Chest x-ray, findings; no significant acute intrathoracic disease. PRIMARY DIAGNOSES: Bronchitis, asthma, and hypertensive urgency. SECONDARY DIAGNOSES: Diabetes, hypertension, and tobacco abuse. DISCHARGE MEDICATIONS: 1. Albuterol sulfate two inhalations p.r.n. q.2 hours. 2. Lasix 40 mg p.o. daily. 3. Meloxicam 15 mg daily. 4. Norvasc 5 mg daily. 5. Atorvastatin 40 mg daily. 6. Amoxicillin 500 mg p.o. t.i.d. x9 days. 7. Fluticasone two sprays each nostril daily for one week, then one spray each nostril daily. 8. Guaifenesin DM 15 mL p.o. q.4 hours p.r.n. 9. Dulera 100 mcg/5 mcg inhaler two puffs b.i.d. HISTORY OF PRESENT ILLNESS AND HOSPITAL COURSE: A 49-year-old female presents to the ED with complaints of one week of cough and shortness of breath. The patient stated that few days ago, she also started to develop sinus headaches and worsening of her cough, congestion, and shortness of breath. She denies any sick contacts or any gastrointestinal symptoms or any myalgias. The patient states that she has a history of asthma and has been utilizing her albuterol inhaler and nebulizer machine for the last three days without much relief. She does note a subjective fever over the last couple days. Her workup in the ER showed a chest x-ray with no acute findings; however, the ER physician felt like the patient may have been developing a right lower lobe pneumonia and the patient was administered azithromycin as well as amoxicillin to cover for bronchitis and sinusitis. Flu testing was negative, and troponin was negative. The patient was found to have a very mild KARYN with a creatinine of 1.2. She was subsequently admitted for observation and continued respiratory monitoring. Overnight, the patient received one DuoNeb and noted some symptomatic improvement. By the morning, the patient was continuing to oxygenate well, not requiring any supplemental oxygen. Her main complaint was continued cough and sputum production. She denied any further fevers at this time. The patient was started on Dulera inhalers and instructed on its use as an outpatient to continue for her chronic treatment of her asthma. Pt was initially hypertensive but BP continually decreased since her admission and is expected to continue to downtrend as she resumes her home medications. At the time of discharge, the patient was stable from a Cardio-Respiratory standpoint and was discharged with amoxicillin to continue treatment for her bronchitis and sinusitis. She was recommended to continue oral fluid hydration and symptomatic management. DISCHARGE INSTRUCTIONS: LOCATION: Home. DIET: Carb conscious. ACTIVITY: As tolerated. FOLLOWUP: PCP, Dr. Diogo Arias within three to seven days. Job ID: [id number] MTDD
== END 2019-12-10 11:57 | disposition home or self-care (01) ==
LOC: ERS 18:39 → 2SW 23:44
PROVIDERS: ADMIT Family Medicine; ATTEND Family Medicine
DX: J45.901 Unspecified asthma with (acute) exacerbation (principal); I16.0 Hypertensive urgency; I10 Essential (primary) hypertension; E78.5 Hyperlipidemia, unspecified; M19.90 Unspecified osteoarthritis, unspecified site; G47.30 Sleep apnea, unspecified; F17.210 Nicotine dependence, cigarettes, uncomplicated; N17.9 Acute kidney failure, unspecified; E11.9 Type 2 diabetes mellitus without complications; E66.9 Obesity, unspecified; Z68.42 Body mass index [BMI] 45.0-49.9, adult; Z79.1 Long term (current) use of non-steroidal anti-inflammatories (NSAID); Z79.899 Other long term (current) drug therapy
CPT/HCPCS: 36415; 71046; 80053; 83605; 84484; 85025; 87804; 93005; 94640; 94664; 96365; 96367; G0378; J0456; J0692; J3490; J7512; J7620

== ENCOUNTER 2020-07-27 22:38 | Emergency (ER) | payer OTHER ==
[2020-07-27 23:51] LABS: #Basophils 0.1 thou/uL (0.0-0.2); #Eosinphils 0.5 thou/uL (0.0-0.7); #Lymphocytes 2.9 thou/uL (1.20-3.40); #Neutrophils 11.4 thou/uL (1.40-6.50); %Basophils 0.5 % (0.0-1.0); %Eosinophils 3.2 % (0.0-10.0); %Lymphocytes 18.3 % (21.0-51.0); %Monocytes 6.1 % (0.0-10.0); %Neutrophils 71.9 % (42.0-75.0); Hemoglobin 13.4 g/dL (12.0-16.0); Mean Corpuscular HGB CONC 31.6 g/dL (32.0-36.0); Mean Corpuscular Hemoglobin 28.6 pg (27.0-31.0); Mean Corpuscular Volume 90.4 fL (78.0-98.0); Mean Platelet Volume 7.3 fL (7.4-10.4); Platelet Count 296 thou/uL (130-400); RBC Distribution Width 14.6 % (11.5-14.5); Red Blood Cell (RBC) Count 4.67 mill/uL (4.20-5.40); White Blood Cell (WBC) Count 15.9 thou/uL (4.8-10.8)
[2020-07-28 00:13] LABS: ALT (SGPT) 15 U/L (8-55); AST (SGOT) 14 U/L (5-34); Albumin 3.8 g/dL (3.5-5.0); Alkaline Phosphatase 91 U/L (40-110); Anion Gap 14 mmol/L (10-20); BUN (Urea Nitrogen) 8 mg/dL (7.0-18.7); Bilirubin, Total 0.5 mg/dL (0.2-1.2); Calc. Creatinine Clearance 0 mL/min (70-130); Calcium 8.9 mg/dL (7.8-10.44); Carbon Dioxide 26 mmol/L (22-29); Chloride 105 mmol/L (98-107); Estimated GFR-MDRD 57; Globulin 3.1 g/dL (2.4-3.5); Glucose 118 mg/dL (70-105); Potassium 4.1 mmol/L (3.5-5.1); Protein, Total 6.9 g/dL (6.0-8.3); Sodium 141 mmol/L (136-145)
[2020-07-28] MEDS ORDERED: Morphine 4 MG/ML VIAL ONE ×2 (02:15→08:41)
[2020-07-28] MEDS ORDERED: cefTRIAXone\\ROCEPHIN 1 GM VIAL ONE (02:48)
[2020-07-28] MEDS ORDERED: Vancomycin 1 GM/200 ML BAG ONE (02:48)
[2020-07-28] MEDS ORDERED: Fentanyl 100 MCG/2 ML VIAL ONE (05:02)
[2020-07-28] MEDS ORDERED: Amlodipine 5 MG TAB ONE ×2 (07:28→07:32)
== END 2020-07-28 09:09 | disposition short-term general hospital (02) ==
LOC: ERS 22:38
DX: L40.8 Other psoriasis (principal); E11.9 Type 2 diabetes mellitus without complications; I10 Essential (primary) hypertension; I25.2 Old myocardial infarction; F32.9 Major depressive disorder, single episode, unspecified; F17.210 Nicotine dependence, cigarettes, uncomplicated; Z79.51 Long term (current) use of inhaled steroids; Z79.899 Other long term (current) drug therapy
CPT/HCPCS: 36415; 80053; 85025; 85652; 86140; 87040; 96361; 96365; 96367; 96375; 96376; J0696; J2270; J3010; J3370

== ENCOUNTER 2020-08-05 16:31 | Emergency (ER) | payer OTHER ==
[2020-08-05 18:01] LABS: #Basophils 0.1 thou/uL (0.0-0.2); #Eosinphils 0.5 thou/uL (0.0-0.7); #Lymphocytes 3.3 thou/uL (1.20-3.40); #Monocytes 0.9 thou/uL (0.11-0.59); #Neutrophils 10.4 thou/uL (1.40-6.50); %Basophils 0.4 % (0.0-1.0); %Eosinophils 3.5 % (0.0-10.0); %Lymphocytes 21.9 % (21.0-51.0); %Monocytes 5.7 % (0.0-10.0); %Neutrophils 68.6 % (42.0-75.0); Hemoglobin 13.1 g/dL (12.0-16.0); Mean Corpuscular HGB CONC 32.3 g/dL (32.0-36.0); Mean Corpuscular Hemoglobin 29.7 pg (27.0-31.0); Mean Corpuscular Volume 91.8 fL (78.0-98.0); Mean Platelet Volume 6.5 fL (7.4-10.4); Platelet Count 422 thou/uL (130-400); RBC Distribution Width 14.2 % (11.5-14.5); White Blood Cell (WBC) Count 15.2 thou/uL (4.8-10.8)
[2020-08-05] MEDS ORDERED: Bacitracin 1 PK ONE (18:03)
[2020-08-05 18:25] LABS: ALT (SGPT) 11 U/L (8-55); AST (SGOT) 18 U/L (5-34); Albumin 3.8 g/dL (3.5-5.0); Alkaline Phosphatase 100 U/L (40-110); Anion Gap 19 mmol/L (10-20); BUN (Urea Nitrogen) 8 mg/dL (7.0-18.7); Bilirubin, Total 0.3 mg/dL (0.2-1.2); Calc. Creatinine Clearance 0 mL/min (70-130); Calcium 8.6 mg/dL (7.8-10.44); Carbon Dioxide 25 mmol/L (22-29); Chloride 103 mmol/L (98-107); Estimated GFR-MDRD 45; Globulin 2.8 g/dL (2.4-3.5); Glucose 106 mg/dL (70-105); Potassium 4.1 mmol/L (3.5-5.1); Protein, Total 6.6 g/dL (6.0-8.3); Sodium 143 mmol/L (136-145)
[2020-08-05] MEDS ORDERED: Furosemide 40 MG/4 ML VIAL ONE (19:28)
[2020-08-05] MEDS ORDERED: Morphine 4 MG/ML VIAL ONE (19:28)
--- NOTE | 2020-08-10 16:36 | EKG ---
Test Reason : Blood Pressure : / mmHG Vent. Rate : 099 BPM Atrial Rate : 099 BPM P-R Int : 174 ms QRS Dur : 084 ms QT Int : 374 ms P-R-T Axes : 057 000 031 degrees QTc Int : 479 ms Normal sinus rhythm Possible Left atrial enlargement Borderline ECG Confirmed by DIOGO CASTRO ([id number]), international editorial producer ROBIN SOTOMAYOR ([id number]) on 08/10/2020 4:35:42 PM Referred By: Confirmed By:DIOGO CASTRO
== END 2020-08-05 20:50 | disposition home or self-care (01) ==
LOC: ERS 16:31
DX: R60.0 Localized edema (principal); E11.9 Type 2 diabetes mellitus without complications; E66.9 Obesity, unspecified; I10 Essential (primary) hypertension; I25.2 Old myocardial infarction; F32.9 Major depressive disorder, single episode, unspecified; F17.210 Nicotine dependence, cigarettes, uncomplicated; Z79.899 Other long term (current) drug therapy
CPT/HCPCS: 36415; 80053; 83880; 84484; 85025; 93005; 96374; 96375; J1940; J2270

== ENCOUNTER 2020-10-22 16:51 | Emergency (ER) | payer OTHER ==
[2020-10-22] MEDS ORDERED: Acetaminophen/Codeine 30-300mg Tablet ONE (17:55)
[2020-10-22] MEDS ORDERED: Amoxicillin/Potassium Clav 875 MG TAB ONE (17:55)
[2020-10-22] MEDS ORDERED: Ibuprofen 800 MG TAB ONE (17:55)
== END 2020-10-22 19:54 | disposition home or self-care (01) ==
LOC: ERS 16:51
DX: J01.90 Acute sinusitis, unspecified (principal); B96.89 Other specified bacterial agents as the cause of diseases classified elsewhere; E11.9 Type 2 diabetes mellitus without complications; I10 Essential (primary) hypertension; I25.2 Old myocardial infarction; E66.9 Obesity, unspecified; F32.9 Major depressive disorder, single episode, unspecified; F17.210 Nicotine dependence, cigarettes, uncomplicated; Z79.51 Long term (current) use of inhaled steroids; Z79.899 Other long term (current) drug therapy
CPT/HCPCS: 99284

== ENCOUNTER 2021-03-29 13:35 | Emergency (ER) | payer OTHER | END 2021-03-29 15:30 | disposition home or self-care (01) | LOC: ERS 13:35 | DX: S30.0XXA Contusion of lower back and pelvis, initial encounter (principal); E11.9 Type 2 diabetes mellitus without complications; I10 Essential (primary) hypertension; I25.2 Old myocardial infarction; F17.210 Nicotine dependence, cigarettes, uncomplicated; X50.9XXA Other and unspecified overexertion or strenuous movements or postures, initial encounter | CPT/HCPCS: 93005 ==

== ENCOUNTER 2022-03-12 12:14 | Outpatient (CLI) | payer OTHER | END 2022-03-12 12:15 | disposition home or self-care (01) | LOC: BICMAMMO 12:14 | PROVIDERS: ATTEND Specialist | DX: Z12.31 Encounter for screening mammogram for malignant neoplasm of breast (principal) | CPT/HCPCS: 77067 ==

== ENCOUNTER 2023-06-08 14:38 | Outpatient (CLI) | payer OTHER | END 2023-06-08 14:39 | disposition home or self-care (01) | LOC: BICMAMMO 14:38 | PROVIDERS: ATTEND Student in an Organized Health Care Education/Training Program | DX: Z12.31 Encounter for screening mammogram for malignant neoplasm of breast (principal); N64.89 Other specified disorders of breast | CPT/HCPCS: 77067 ==

== ENCOUNTER 2023-10-24 14:53 | Emergency (ER) | payer OTHER ==
[~2023-10-24 14:53] MED LIST changes: -Iopamidol 370 76% 100 ML VIAL ONE; +Iopamidol-370 76% 500 ML MDV (1 ML CHARGE) ONE
[2023-10-24 15:39] LABS: Bacteria/HPF None Seen HPF (None Seen); Bilirubin Negative (Negative); Blood, Urine Negative (Negative); CAUTI Indications for Culture Acute Hematuria; Clarity Clear (Clear); Glucose, Urine (Dipstick) Normal (Negative); Ketone, Urine Negative (Negative); Leukocyte Negative Leu/uL (Negative); Nitrite Negative (Negative); Protein, Urine (Dipstick) Negative (Neg-Trace); RBC/HPF 0-3 HPF (0-3); Specific Gravity, Urine 1.013 (1.002-1.036); Squamous Epithelial 0-3 HPF (0-3); Urobilinogen Normal mg/dL (Less than 2); WBC/HPF 0-3 HPF (0-3); pH, Urine 6.5 (5.0-9.0)
[2023-10-24 15:41] LABS: #Basophils 0.1 thou/uL (0.0-0.2); #Eosinphils 0.1 thou/uL (0.0-0.7); #Monocytes 0.6 thou/uL (0.11-0.59); #Neutrophils 11.1 thou/uL (1.40-6.50); %Basophils 0.5 % (0.0-1.0); %Eosinophils 0.5 % (0.0-10.0); %Lymphocytes 14.2 % (21.0-51.0); %Monocytes 4.1 % (0.0-10.0); %Neutrophils 79.2 % (42.0-75.0); Hematocrit 39.6 % (36.0-47.0); Hemoglobin 13.1 g/dL (12.0-16.0); Mean Corpuscular HGB CONC 33.1 g/dL (32.0-36.0); Mean Corpuscular Hemoglobin 30.4 pg (27.0-31.0); Mean Corpuscular Volume 91.9 fl (78.0-98.0); Mean Platelet Volume 9.2 fL (7.4-10.4); Platelet Count 382 10x3/uL (130-400); RBC Distribution Width 15.9 % (11.5-14.5); Red Blood Cell (RBC) Count 4.31 mill/uL (4.20-5.40)
[2023-10-24 15:41] LABS: Urine Culture Reflex No No
[2023-10-24 16:05] LABS: ALT (SGPT) 11 U/L (8-55); AST (SGOT) 12 U/L (5-34); Albumin 4.1 g/dL (3.5-5.0); Alkaline Phosphatase 122 U/L (40-110); Anion Gap 15 mmol/L (10-20); BUN (Urea Nitrogen) 12 mg/dL (9.8-20.1); Bilirubin, Total 0.3 mg/dL (0.2-1.2); Calc. Creatinine Clearance 0 mL/min (70-130); Calcium 9.4 mg/dL (7.8-10.44); Carbon Dioxide 25 mmol/L (22-29); Chloride 103 mmol/L (98-107); Estimated GFR 69; Globulin 3.5 g/dL (2.4-3.5); Glucose 125 mg/dL (70-105); Magnesium 1.9 mg/dL (1.6-2.6); Potassium 4.4 mmol/L (3.5-5.1); Protein, Total 7.6 g/dL (6.0-8.3); Sodium 139 mmol/L (136-145)
[2023-10-24 16:07] LABS: Troponin I Less than 0.010 ng/mL (< 0.028)
[2023-10-24] MEDS ORDERED: Ketorolac Tromethamine 30 MG/ML VIAL ONE (16:28)
[2023-10-24] MEDS ORDERED: Ondansetron PF 4 MG/2 ML Vial ONE (16:29)
[2023-10-24] MEDS ORDERED: Morphine 4 MG/ML VIAL ONE ×2 (16:32→17:06)
== END 2023-10-24 18:10 | disposition home or self-care (01) ==
LOC: ERS 14:53
DX: R10.13 Epigastric pain (principal); R11.2 Nausea with vomiting, unspecified; I10 Essential (primary) hypertension; E11.9 Type 2 diabetes mellitus without complications; I25.2 Old myocardial infarction; E66.9 Obesity, unspecified; F17.210 Nicotine dependence, cigarettes, uncomplicated; Z79.84 Long term (current) use of oral hypoglycemic drugs; Z79.899 Other long term (current) drug therapy
CPT/HCPCS: 36415; 74177; 76705; 80053; 81001; 83605; 83690; 83735; 84484; 85025; 93005; 96361; 96374; 96375; 96376; J1885; J2270; J2405; Q9967

== ENCOUNTER 2024-08-22 11:02 | Emergency (ER) | payer OTHER ==
[2024-08-22] MEDS ORDERED: Ketorolac Tromethamine 30 MG (1 mL) VIAL ONE (12:12)
[2024-08-22 12:13] LABS: #Basophils 0.04 10x3/uL (0.0-0.2); %Basophils 0.3 % (0.0-1.0); %Eosinophils 2.7 % (0.0-10.0); %Lymphocytes 13.7 % (21.0-51.0); %Monocytes 2.7 % (0.0-10.0); %Neutrophils 80.2 % (42.0-75.0); Hematocrit 40.4 % (36.0-47.0); Hemoglobin 13.1 g/dL (12.0-16.0); Mean Corpuscular HGB CONC 32.4 g/dL (32.0-36.0); Mean Corpuscular Hemoglobin 29.6 pg (27.0-31.0); Mean Corpuscular Volume 91.4 fL (78.0-98.0); Platelet Count 333 10x3/uL (130-400); RBC Distribution Width 15.2 % (11.5-14.5); Red Blood Cell (RBC) Count 4.42 mill/uL (4.20-5.40)
[2024-08-22 12:37] LABS: ALT (SGPT) 72 U/L (8-55); AST (SGOT) 76 U/L (5-34); Albumin 3.4 g/dL (3.5-5.0); Alkaline Phosphatase 113 U/L (40-110); Anion Gap 10 mmol/L (10-20); BUN (Urea Nitrogen) 12 mg/dL (9.8-20.1); Bilirubin, Total 0.5 mg/dL (0.2-1.2); Calc. Creatinine Clearance 0 mL/min (70-130); Calcium 9.5 mg/dL (7.8-10.44); Carbon Dioxide 25 mmol/L (22-29); Chloride 107 mmol/L (98-107); Estimated GFR 58; Globulin 4.2 g/dL (2.4-3.5); Glucose 131 mg/dL (70-105); Potassium 4.2 mmol/L (3.5-5.1); Protein, Total 7.6 g/dL (6.0-8.3); Sodium 138 mmol/L (136-145)
[2024-08-22] MEDS ORDERED: Morphine 4 MG/ML VIAL ONE (13:20)
== END 2024-08-22 13:35 | disposition home or self-care (01) ==
LOC: ERS 11:02
DX: L40.9 Psoriasis, unspecified (principal); I10 Essential (primary) hypertension; E11.9 Type 2 diabetes mellitus without complications; J45.909 Unspecified asthma, uncomplicated; F17.210 Nicotine dependence, cigarettes, uncomplicated; Z79.51 Long term (current) use of inhaled steroids
CPT/HCPCS: 36415; 80053; 85025; 93005; 96374; 96375; J1885; J2272